=== PATIENT | female | born 1985 | race Hispanic/Latino ===

== ENCOUNTER 2023-02-28 11:38 | Emergency (ER) | payer OTHER ==
[2023-02-28 12:26] LABS: #Eosinphils 0.1 10x3/uL (0.0-0.5); #Monocytes 0.4 10x3/uL (0.0-1.1); %Basophils 0.3 % (0.0-2.0); %Eosinophils 1.7 % (0.0-6.0); %Lymphocytes 21.3 % (18.0-47.0); %Monocytes 5.5 % (0.0-10.0); %Neutrophils 71.1 % (40.0-75.0); Hemoglobin 13.9 g/dL (12.0-15.5); Mean Corpuscular HGB CONC 32.9 g/dL (32.0-36.0); Mean Corpuscular Volume 88.1 fl (81.6-98.3); Mean Platelet Volume 11.2 fl (7.4-10.4); Platelet Count 252 10x3/uL (150-450); Red Blood Cell (RBC) Count 4.79 10x6/uL (3.90-5.03); White Blood Cell (WBC) Count 7.1 10x3/uL (3.5-10.5)
[2023-02-28 12:41] LABS: ALT (SGPT) 26 U/L (8-55); AST (SGOT) 19 U/L (5-34); Albumin 4.4 g/dL (3.5-5.0); Alkaline Phosphatase 69 U/L (40-110); Anion Gap 12 mmol/L (10-20); BUN (Urea Nitrogen) 9 mg/dL (7.0-18.7); Bilirubin, Total 0.3 mg/dL (0.2-1.2); Calc. Creatinine Clearance 0 mL/min (70-130); Calcium 9.4 mg/dL (7.8-10.44); Carbon Dioxide 25 mmol/L (22-29); Chloride 107 mmol/L (98-107); Estimated GFR 109; Globulin 3.2 g/dL (2.4-3.5); Glucose 87 mg/dL (70-105); Potassium 3.6 mmol/L (3.5-5.1); Protein, Total 7.6 g/dL (6.0-8.3); Sodium 140 mmol/L (136-145)
[2023-02-28 12:57] LABS: Bilirubin Neg (Negative); Blood, Urine 250 (Negative); Clarity Clear (Clear); Glucose, Urine (Dipstick) Normal (Negative); Ketone, Urine Negative (Negative); Leukocyte Negative (Negative); Nitrite Negative (Negative); Protein, Urine (Dipstick) 15 mg/dl (Neg-Trace); Urobilinogen Normal mg/dL (Less than 2)
[2023-02-28 13:09] LABS: Bacteria/HPF Rare-Few HPF (None Seen); CAUTI Indications for Culture Pregnancy; RBC/HPF Greater than 50 HPF (0-3); Squamous Epithelial 0-3 HPF (0-3); WBC/HPF 0-3 HPF (0-3)
[2023-02-28 13:10] LABS: Urine Culture Reflex Yes Yes
== END 2023-02-28 15:11 | disposition home or self-care (01) ==
LOC: CSHERS 11:38
DX: O20.0 Threatened abortion (principal); Z3A.01 Less than 8 weeks gestation of pregnancy
CPT/HCPCS: 36415; 76856; 80053; 81001; 84702; 85025; 86900; 86901; 87077; 87086

== ENCOUNTER 2023-09-05 11:43 | Emergency (ER) | payer MEDICAID, SELFPAY ==
[2023-09-05 12:27] LABS: Bilirubin Neg (Negative); Blood, Urine 250 (Negative); Clarity Clear (Clear); Glucose, Urine (Dipstick) Normal (Negative); Ketone, Urine Negative (Negative); Leukocyte Negative (Negative); Nitrite Negative (Negative); Protein, Urine (Dipstick) 15 mg/dl (Neg-Trace); Specific Gravity, Urine 1.005 (1.005-1.030); Urobilinogen Normal mg/dL (Less than 2)
[2023-09-05 12:38] LABS: Bacteria/HPF Rare-Few HPF (None Seen); CAUTI Indications for Culture Pregnancy; Squamous Epithelial 0-3 HPF (0-3); WBC/HPF 0-3 HPF (0-3)
[2023-09-05 12:40] LABS: #Eosinphils 0.1 10x3/uL (0.0-0.5); #Monocytes 0.5 10x3/uL (0.0-1.1); #Neutrophils 6.1 10x3/uL (1.5-8.4); %Basophils 0.5 % (0.0-2.0); %Lymphocytes 20.1 % (18.0-47.0); %Monocytes 5.6 % (0.0-10.0); %Neutrophils 72.6 % (40.0-75.0); Hematocrit 41.1 % (34.9-44.5); Hemoglobin 13.9 g/dL (12.0-15.5); Mean Corpuscular HGB CONC 33.8 g/dL (32.0-36.0); Mean Corpuscular Hemoglobin 29.4 pg (27.0-33.0); Mean Corpuscular Volume 87.1 fl (81.6-98.3); Mean Platelet Volume 11.2 fl (7.4-10.4); Platelet Count 259 10x3/uL (150-450); RBC Distribution Width 13.2 % (11.5-14.5); Red Blood Cell (RBC) Count 4.72 10x6/uL (3.90-5.03); White Blood Cell (WBC) Count 8.4 10x3/uL (3.5-10.5)
[2023-09-05 12:41] LABS: Urine Culture Reflex Yes Yes
[2023-09-05 12:51] LABS: BHCG - Serum POSITIVE (NEGATIVE); Pregs Control Background? CLEAR/WHITE (CLR/WHITE); Pregs Control Bar Appear? YES (CONTROL BAR)
[2023-09-05 12:53] LABS: ALT (SGPT) 26 U/L (8-55); AST (SGOT) 22 U/L (5-34); Albumin 4.5 g/dL (3.5-5.0); Alkaline Phosphatase 73 U/L (40-110); Anion Gap 13 mmol/L (10-20); BUN (Urea Nitrogen) 11 mg/dL (7.0-18.7); Bilirubin, Total 0.3 mg/dL (0.2-1.2); Calc. Creatinine Clearance 0 mL/min (70-130); Calcium 9.5 mg/dL (7.8-10.44); Carbon Dioxide 25 mmol/L (22-29); Chloride 105 mmol/L (98-107); Estimated GFR 103; Globulin 3.3 g/dL (2.4-3.5); Glucose 110 mg/dL (70-105); Lipase 41 U/L (8-78); Potassium 4.1 mmol/L (3.5-5.1); Protein, Total 7.8 g/dL (6.0-8.3); Sodium 139 mmol/L (136-145)
== END 2023-09-05 16:00 | disposition home or self-care (01) ==
LOC: CSHERS 11:43
DX: O20.8 Other hemorrhage in early pregnancy (principal); Z3A.01 Less than 8 weeks gestation of pregnancy
CPT/HCPCS: 36415; 76856; 80053; 81001; 83690; 84702; 84703; 85025; 86900; 86901; 87077; 87086

== ENCOUNTER 2023-09-08 14:31 | Emergency (ER) | payer SELFPAY | END 2023-09-08 17:18 | disposition home or self-care (01) | LOC: CSHERS 14:31 | DX: N39.0 Urinary tract infection, site not specified (principal); N93.9 Abnormal uterine and vaginal bleeding, unspecified | CPT/HCPCS: 76856; 84702 ==

== ENCOUNTER 2025-05-14 23:53 | Day surgery (SDC) | payer OTHER ==
[2025-05-15 00:22] VITALS: BMI 25.9
[2025-05-15 01:03] LABS: Glucose, Urine (Dipstick) Normal (Negative); Leukocyte Negative (Negative); Protein, Urine (Dipstick) Negative (Neg-Trace); Specific Gravity, Urine 1.010 (1.005-1.030)
[2025-05-15 01:14] LABS: Bacteria/HPF None Seen HPF (None Seen); CAUTI Indications for Culture Pregnancy; RBC/HPF None Seen HPF (0-3); WBC/HPF None Seen HPF (0-3)
[2025-05-15 01:15] LABS: Urine Culture Reflex Yes Yes
== END 2025-05-15 02:00 | disposition home or self-care (01) ==
LOC: CSHLD/OP 23:53
PROVIDERS: ATTEND Obstetrics & Gynecology
DX: O99.891 Other specified diseases and conditions complicating pregnancy (principal); R10.2 Pelvic and perineal pain; Z3A.38 38 weeks gestation of pregnancy
CPT/HCPCS: 81001; 87077; 87086; 99283

== ENCOUNTER 2025-05-20 20:54 | Inpatient (IN) | payer MEDICAID, OTHER, SELFPAY ==
[2025-05-20 21:17] VITALS: BMI 25.7
[2025-05-20] MEDS ORDERED: hydrALAZINE 20 MG/ML VIAL SLOW IVP PRN ×2 (21:38→23:29)
[2025-05-20] MEDS ORDERED: Tranexamic Acid 1,000 MG/10 ML VIAL IVP PRN (23:29)
[2025-05-20] MEDS ORDERED: Acetaminophen 500 MG TAB PO PRN (23:29)
[2025-05-20] MEDS ORDERED: Diphenoxylate HCl/Atropine Tablet PO PRN (23:29)
[2025-05-20] MEDS ORDERED: Ondansetron PF 4 MG/2 ML Vial IVP PRN (23:29)
[2025-05-20] MEDS ORDERED: Methylergonovine 0.2 MG/ML VIAL IM PRN (23:29)
[2025-05-20] MEDS ORDERED: Lidocaine 1% (PF) 30 ML VIAL SC PRN (23:29)
[2025-05-20] MEDS ORDERED: Carboprost 250 MCG/ML AMP IM PRN (23:29)
[2025-05-20] MEDS ORDERED: Oxytocin 30 units/NS 500 ML 500 ML IV SCH ×2 (23:30)
[2025-05-21 00:07] LABS: Hematocrit 37.5 % (34.9-44.5); Hemoglobin 12.8 g/dL (12.0-15.5); Mean Corpuscular Hemoglobin 31.1 pg (27.0-33.0); Mean Corpuscular Volume 91.2 fL (81.6-98.3); Platelet Count 156 10x3/uL (150-450); Red Blood Cell (RBC) Count 4.11 10x6/uL (3.90-5.03); White Blood Cell (WBC) Count 9.17 10x3/uL (3.5-10.5)
[2025-05-21 00:38] LABS: Syphilis Antibody Index 0.04 S/CO (<1.00 Non-Reactive)
[2025-05-21 00:40] LABS: Hep B Surf Ag - L&D Non-Reactive S/CO (NonReactive)
[2025-05-21] MEDS: fentaNYL/Ropivacaine Epidural 100 ML ONE (03:17)
[2025-05-21] MEDS ORDERED: Acetaminophen 325 MG TAB PO PRN (03:36)
[2025-05-21] MEDS ORDERED: Ondansetron PF 4 MG/2 ML Vial IVP PRN ×2 (03:36→18:25)
[2025-05-21] MEDS ORDERED: diphenhydrAMINE 50 MG/ML VIAL IVP PRN (03:36)
[2025-05-21] MEDS ORDERED: fentaNYL 2 mcg/Ropivacaine 0.2% Epidural 100 ML CADD EPIDURAL SCH (03:45)
[2025-05-21] MEDS ORDERED: Communication Order-Pharmacy FS SCH (03:45)
[2025-05-21] MEDS: Gentamicin 280 MG, Admixture Fee 1 EACH in Sodium Chloride 0.9% 100 ML IVPB SCH (13:50)
[2025-05-21] MEDS ORDERED: Bupivacaine HCl 0.5%/Epinephrine 1:200,000/PF 30 ml Vial ONE (14:15)
[2025-05-21] MEDS ORDERED: Bupivacaine 0.25% HCL 30 ML VIAL ONE (14:15)
[2025-05-21] MEDS: Ibuprofen 800 MG TAB PO PRN (15:05)
[2025-05-21 18:14] LABS: Hematocrit 29.0 % (34.9-44.5); Hemoglobin 10.1 g/dL (12.0-15.5); Mean Corpuscular Hemoglobin 31.1 pg (27.0-33.0); Mean Corpuscular Volume 89.2 fL (81.6-98.3); Platelet Count 144 10x3/uL (150-450); Red Blood Cell (RBC) Count 3.25 10x6/uL (3.90-5.03); White Blood Cell (WBC) Count 20.82 10x3/uL (3.5-10.5)
[2025-05-21] MEDS ORDERED: HYDROcodone/Acetaminophen 5/325 mg Tablet PO PRN (18:25)
[2025-05-21] MEDS ORDERED: Milk Of Magnesia 30 ML UDCUP PO PRN (18:25)
[2025-05-21] MEDS ORDERED: Bisacodyl 10 MG SUPP PR PRN (18:25)
[2025-05-21] MEDS ORDERED: Methylergonovine 0.2 MG/ML VIAL IM PRN (18:25)
[2025-05-21] MEDS ORDERED: Lanolin Ointment 7 GM TUBE TOP PRN (18:25)
[2025-05-21] MEDS ORDERED: hydrALAZINE 20 MG/ML VIAL SLOW IVP PRN (18:25)
[2025-05-21] MEDS ORDERED: Oxytocin 30 units/NS 500 ML 500 ML IV SCH (18:30)
[2025-05-21] MEDS: Clindamycin/D5W 900 MG in Premix 1 BAG IVPB SCH ×2 (20:20→20:56)
[2025-05-21] MEDS: Boostrix 0.5 ML (Tdap) VIAL (>/=7 yrs of age) IM ONE (20:56)
[2025-05-21] MEDS: Ondansetron PF 4 MG/2 ML Vial ONE (20:56)
[2025-05-21] MEDS: Dexamethasone 10 MG/ML VIAL ONE (20:56)
[2025-05-21] MEDS: PHENYLEPHRINE-NS 100 MCG/ML 10 ML SYRINGE ONE (20:56)
[2025-05-21] MEDS: Ibuprofen 800 MG TAB PO SCH (21:28)
[2025-05-22 04:34] LABS: ALT (SGPT) 12 U/L (Less than 34); AST (SGOT) 26 U/L (11-34); Albumin 2.1 g/dL (3.1-4.5); Alkaline Phosphatase 109 U/L (40-110); Anion Gap 8 mmol/L (10-20); BUN (Urea Nitrogen) 7 mg/dL (7.0-18.7); Bilirubin, Total 0.2 mg/dL (0.3-1.2); Calc. Creatinine Clearance 141 mL/min (70-130); Calcium 8.1 mg/dL (7.8-10.44); Carbon Dioxide 23 mmol/L (22-29); Chloride 109 mmol/L (98-107); Globulin 2.6 g/dL (2.4-3.5); Glucose 82 mg/dL (70-105); Potassium 3.4 mmol/L (3.5-5.1); Sodium 137 mmol/L (136-145)
[2025-05-22 04:36] LABS: Hematocrit 24.5 % (34.9-44.5); Hemoglobin 8.3 g/dL (12.0-15.5); Mean Corpuscular Hemoglobin 31.0 pg (27.0-33.0); Mean Corpuscular Volume 91.4 fL (81.6-98.3); Platelet Count 122 10x3/uL (150-450); Red Blood Cell (RBC) Count 2.68 10x6/uL (3.90-5.03); White Blood Cell (WBC) Count 15.62 10x3/uL (3.5-10.5)
[2025-05-22 04:38] LABS: MDiff Complete? YES; Platelet Adequacy Comment Appears Decreased; RBC Morphology Within Normal Limits
[2025-05-22] MEDS: Ferrous Sulfate 325 MG TAB PO SCH (08:53)
[2025-05-22] MEDS ORDERED: Acetaminophen 500 MG TAB PO PRN (18:17)
[2025-05-22] MEDS: Clindamycin/D5W 900 MG in Premix 1 BAG IVPB SCH (19:27)
[2025-05-22] MEDS: Benzocaine-Menthol 82.5 ML CAN TOP PRN (23:25)
[2025-05-22] MEDS: Preparation H Ointment 28 GM TUBE PR PRN (23:26)
[2025-05-23 04:42] LABS: #Basophils Less than 0.03 10x3/uL (0.0-0.2); #Eosinophils 0.12 10x3/uL (0.0-0.5); #Monocytes 0.67 10x3/uL (0.0-1.1); #Neutrophils 7.55 10x3/uL (1.5-8.4); %Basophils 0.1 % (0.0-2.0); %Eosinophils 1.2 % (0.0-6.0); %Lymphocytes 16.5 % (18.0-47.0); %Monocytes 6.6 % (0.0-10.0); %Neutrophils 74.8 % (40.0-75.0); Hematocrit 24.7 % (34.9-44.5); Hemoglobin 8.5 g/dL (12.0-15.5); Mean Corpuscular Hemoglobin 31.3 pg (27.0-33.0); Mean Corpuscular Volume 90.8 fL (81.6-98.3); Platelet Count 133 10x3/uL (150-450); Red Blood Cell (RBC) Count 2.72 10x6/uL (3.90-5.03); White Blood Cell (WBC) Count 10.09 10x3/uL (3.5-10.5)
[2025-05-23 04:56] LABS: Anion Gap 10 mmol/L (10-20); BUN (Urea Nitrogen) 11 mg/dL (7.0-18.7); Calc. Creatinine Clearance 136 mL/min (70-130); Calcium 8.6 mg/dL (7.8-10.44); Carbon Dioxide 28 mmol/L (22-29); Chloride 105 mmol/L (98-107); Glucose 74 mg/dL (70-105); Potassium 3.6 mmol/L (3.5-5.1); Sodium 139 mmol/L (136-145)
[2025-05-23 07:45] VITALS: BP 103/63; TEMP 98.7
== END 2025-05-23 11:40 | disposition home or self-care (01) | DRG 806 ==
LOC: CSHLD/OP 20:54 → CSHLD 23:33 → CSHPP 05-21 20:00
PROVIDERS: ADMIT Obstetrics & Gynecology; ATTEND Obstetrics & Gynecology
PROC: 10E0XZZ Delivery of Products of Conception, External Approach (ICD-10-PCS; principal; 2025-05-21)
PROC: 3E033VJ Introduction of Other Hormone into Peripheral Vein, Percutaneous Approach (ICD-10-PCS; 2025-05-21)
PROC: 10D17Z9 Manual Extraction of Products of Conception, Retained, Via Natural or Artificial Opening (ICD-10-PCS; 2025-05-21)
PROC: 10907ZC Drainage of Amniotic Fluid, Therapeutic from Products of Conception, Via Natural or Artificial Opening (ICD-10-PCS; 2025-05-21)
DX: O76 Abnormality in fetal heart rate and rhythm complicating labor and delivery (principal); O72.0 Third-stage hemorrhage; Z37.0 Single live birth; O69.81X0 Labor and delivery complicated by cord around neck, without compression, not applicable or unspecified; Z3A.38 38 weeks gestation of pregnancy; O99.824 Streptococcus B carrier state complicating childbirth; O70.0 First degree perineal laceration during delivery
CPT/HCPCS: 36415; 51701; 51702; 80048; 80053; 85025; 85027; 86780; 86850; 86900; 86901; 87340; 88307; 99285; J0665; J0690; J1100; J1580; J3490; J7120